=== PATIENT | female | born 1950 | race Caucasian/White ===

== ENCOUNTER 2020-12-29 11:08 | Outpatient (CLI) | payer OTHER, MEDICARE | END 2020-12-29 11:09 | disposition home or self-care (01) | LOC: CSHMAMMO 11:08 | PROVIDERS: ATTEND Family Medicine Sports Medicine | DX: Z78.0 Asymptomatic menopausal state (principal); M85.80 Other specified disorders of bone density and structure, unspecified site | CPT/HCPCS: 77080 ==

== ENCOUNTER 2020-12-29 11:58 | Outpatient (CLI) | payer MEDICARE, OTHER | END 2020-12-29 11:59 | disposition home or self-care (01) | LOC: CSHRAD 11:58 | PROVIDERS: ATTEND Family Medicine Sports Medicine | DX: M79.622 Pain in left upper arm (principal); M19.012 Primary osteoarthritis, left shoulder ==

== ENCOUNTER 2022-02-26 08:11 | Outpatient (CLI) | payer MEDICARE, OTHER | END 2022-02-26 08:12 | disposition home or self-care (01) | LOC: CSHMAMMO 08:11 | PROVIDERS: ATTEND Family Medicine Sports Medicine | DX: Z12.31 Encounter for screening mammogram for malignant neoplasm of breast (principal) | CPT/HCPCS: 77063; 77067 ==

== ENCOUNTER 2023-07-30 14:26 | Outpatient (CLI) | payer MEDICARE, OTHER | END 2023-07-30 14:27 | disposition home or self-care (01) | LOC: CSHMAMMO 14:26 | PROVIDERS: ATTEND Family Medicine Sports Medicine | DX: Z12.31 Encounter for screening mammogram for malignant neoplasm of breast (principal); M81.0 Age-related osteoporosis without current pathological fracture; M85.851 Other specified disorders of bone density and structure, right thigh | CPT/HCPCS: 77063; 77067; 77080 ==

== ENCOUNTER 2023-12-16 09:27 | Outpatient (CLI) | payer MEDICARE, OTHER | END 2023-12-16 09:28 | disposition home or self-care (01) | LOC: CSHULT 09:27 | PROVIDERS: ATTEND Family Medicine Sports Medicine | DX: R10.11 Right upper quadrant pain (principal); K76.9 Liver disease, unspecified | CPT/HCPCS: 76700 ==

== ENCOUNTER 2024-05-20 13:01 | Outpatient (CLI) | payer MEDICARE, OTHER | END 2024-05-20 13:02 | disposition home or self-care (01) | LOC: CSHRAD 13:01 | PROVIDERS: ATTEND Family Medicine Sports Medicine | DX: M54.2 Cervicalgia (principal); M47.812 Spondylosis without myelopathy or radiculopathy, cervical region | CPT/HCPCS: 72040 ==

== ENCOUNTER 2025-08-25 11:42 | Outpatient (CLI) | payer MEDICARE, OTHER | END 2025-08-25 11:43 | disposition home or self-care (01) | LOC: CSHMAMMO 11:42 | PROVIDERS: ATTEND Family Medicine Sports Medicine | DX: Z12.31 Encounter for screening mammogram for malignant neoplasm of breast (principal); Z80.3 Family history of malignant neoplasm of breast | CPT/HCPCS: 77063; 77067 ==